=== PATIENT | female | born 1950 | race Caucasian/White ===

== ENCOUNTER → 2018-01-24 | Outpatient (CLI) | payer MEDICARE, OTHER, MEDICAID ==
[~2018-01-24] MED LIST: DULCOLAX10 M1 R; MILK OF MA400 MG/5 M PO; PROAIR HFA8.5 GM INH; SPIRIVA -- 3018 MCG INH; TYLENOL325 M3 PO; VENTOLIN 02.5 MG/3 M INH; VICODIN 500 MG-1 TAB PO; VITAMIN D-32000 UNI1 PO
== END | disposition home or self-care (01) ==
LOC: CT 01-20 09:00
DX: K57.90 Diverticulosis of intestine, part unspecified, without perforation or abscess without bleeding (principal); J44.9 Chronic obstructive pulmonary disease, unspecified

== ENCOUNTER 2019-05-20 12:32 | Inpatient (IN) | payer MEDICARE, OTHER, MEDICAID ==
[~2019-05-20] VITALS: Ht 157.5 cm; Wt 35.0 kg
[2019-05-20 12:34] VITALS: BP 155/61
[2019-05-20 12:56] LABS: BASO % 0.2 % (0.0-1.0); EOS % 0.1 % (1.0-4.0); HEMATOCRIT 43.2 % (37.0-47.0); HEMOGLOBIN 13.9 g/dl (12.0-16.0); LYMPH # 0.8 10*3/uL (1.3-4.4); LYMPH % 6.1 % (27.0-41.0); MEAN CELL VOLUME 88.7 fl (81.0-99.0); MEAN CORPUSCULAR HGB 28.5 pg (27.0-31.0); MEAN CORPUSCULAR HGB CONC 32.2 g/dl (33.0-37.0); MEAN PLATELET VOLUME 12.2 fl (9.6-12.3); MONO # 0.7 10*3/uL (0.1-1.0); MONO % 4.8 % (3.0-9.0); NEUT # 12.1 10*3/uL (2.3-7.9); NEUT % 88.4 % (47.0-73.0); PLATELET COUNT AUTOMATED 132 10*3/uL (130-400); RED BLOOD COUNT 4.87 10*6/uL (4.10-5.10); RED CELL DISTRI WIDTH 13.6 % (0-14.5); WHITE BLOOD COUNT 13.7 10*3/uL (4.8-10.8)
[2019-05-20 13:04] LABS: ACT PARTIAL THROMBO TIME 27.6 SECONDS (20.0-32.1); INTERNATIONAL NORM RATIO 0.9 (2.0-3.5)
[2019-05-20 13:05] LABS: BUN 14 mg/dl (7-24); CHLORIDE 106 mmol/L (98-107); CREATININE 0.61 mg/dL (0.55-1.02); POTASSIUM 3.6 mmol/L (3.5-5.1); SODIUM 142 mmol/L (136-145)
[2019-05-20 15:08] LABS: BILIRUBIN NEGATIVE (NEGATIVE); BLOOD NEGATIVE (NEGATIVE); CLARITY CLOUDY (CLEAR); COLOR YELLOW (YELLOW); GLUCOSE NEGATIVE (NEGATIVE); KETONE NEGATIVE (NEGATIVE); LEUKO ESTERASE NEGATIVE (NEGATIVE); NITRITE POSITIVE (NEGATIVE); PH 8.5 (5.0-9.0); UROBILINOGEN 0.2 E.U./dl (0.2-1.0)
[2019-05-20 15:10] VITALS: BP 144/65
[2019-05-20 15:18] LABS: BACTERIA 2+; EPITHELIAL CELLS 0-2; WBC 0-2 wbc/hpf (0-5)
--- NOTE | 2019-05-20 15:20 | NUR ---
Time: 1519 A 69 year old FEMALE admitted to 5E under services of AYDEN ANNE DO. Pt. arrived via bed from ER. Chief complaint: ACUTE PAIN. HAYDEE IRVIN
--- NOTE | 2019-05-20 15:49 | NUR ---
PT GIVEN MORPHINE SULFATE FOR PAIN AFTER PT YELLING OUT AND GRIMACING WITH MOVEMENT. PT THEN STARTED ITCHING ARM AND ARM WAS RED WITHOUT BLOTCHING IMMEDIATELY. DR BRAUN CALLED AND STATED HE WOULD BE UP TO SEE PATIENT.
[2019-05-20 16:00] VITALS: BP 147/71
[2019-05-20] MEDS ORDERED: ATORVASTATIN CA10 M1 PO (16:34)
[2019-05-20] MEDS ORDERED: NATURE'S BLEND F1 MG PO (16:35)
[2019-05-20] MEDS ORDERED: MILK OF MA400 MG/51 PO (16:36)
[2019-05-20] MEDS ORDERED: OYSTER SHELL C1 EAC3 PO (16:36)
[2019-05-20] MEDS ORDERED: THIAMINE HCL100 MG PO (16:37)
[2019-05-20] MEDS ORDERED: VENT7GM INH (16:38)
--- NOTE | 2019-05-20 16:49 | NUR ---
IV MS EFF. WILL CONT TO MONITOR. CALL LIGHT IN REACH.
--- NOTE | 2019-05-20 16:58 | NUR ---
UNABLE TO CALL DR BRIDGES CONSULT AT THIS TIME DUE TO NOBODY BEING STUDENT COUNSELOR. WILL PASS ALONG TO CALL IN AM.
[2019-05-20 20:00] VITALS: BP 150/80
--- NOTE | 2019-05-20 21:00 | NUR ---
DR. MUNGUIA CONTACTED AT THIS TIME REGARDING MED REC BEING UP TO DATE.
--- NOTE | 2019-05-20 21:55 | NUR ---
PRN NORCO PROVIDED FOR LEFT HIP/LEG PAIN, CALL LIGHT IS WITHIN REACH, WILL MONITOR EFFECT.
--- NOTE | 2019-05-20 22:45 | NUR ---
PRN NORCO APPEARS EFFECTIVE, PATIENT IS SLEEPING WITH EASY AND REGULAR RESPERS ON ROOM AIR. CALL LIGHT IS WITHIN REACH.
[2019-05-21] VITALS: BP 149/64
[2019-05-21 06:13] LABS: BASO % 0.2 % (0.0-1.0); EOS % 0.1 % (1.0-4.0); HEMATOCRIT 43.6 % (37.0-47.0); HEMOGLOBIN 14.2 g/dl (12.0-16.0); LYMPH # 0.8 10*3/uL (1.3-4.4); LYMPH % 7.7 % (27.0-41.0); MEAN CELL VOLUME 87.2 fl (81.0-99.0); MEAN CORPUSCULAR HGB 28.4 pg (27.0-31.0); MEAN CORPUSCULAR HGB CONC 32.6 g/dl (33.0-37.0); MEAN PLATELET VOLUME 12.2 fl (9.6-12.3); MONO # 0.7 10*3/uL (0.1-1.0); NEUT # 9.3 10*3/uL (2.3-7.9); NEUT % 85.4 % (47.0-73.0); PLATELET COUNT AUTOMATED 142 10*3/uL (130-400); RED CELL DISTRI WIDTH 13.6 % (0-14.5); WHITE BLOOD COUNT 10.9 10*3/uL (4.8-10.8)
[2019-05-21 06:23] LABS: BUN 9 mg/dl (7-24); CHLORIDE 106 mmol/L (98-107); CREATININE 0.67 mg/dL (0.55-1.02); PHOSPHOROUS 2.6 mg/dL (2.5-4.9); POTASSIUM 3.3 mmol/L (3.5-5.1); SODIUM 139 mmol/L (136-145)
[2019-05-21 08:00] VITALS: BP 100/62
--- NOTE | 2019-05-21 08:34 | NUR ---
PHYSICAL THERAPY Screen received as well as orders for PT will follow, thank you Freida Alberto PT
--- NOTE | 2019-05-21 08:37 | NUR ---
PHYSICAL THERAPY Pt admitted with L hip fx consulted will follow once medically cleared/Ortho consult completed/orders received. Freida Alberto PT
--- NOTE | 2019-05-21 08:39 | NUR ---
Occupational therapy orders received and chart reviewed. Per chart review, patient admitted with a L hip fracture and has a Dr. Still consult. Will follow up following consult. Thank you. Constance Braun OTR/L
--- NOTE | 2019-05-21 09:01 | NUR ---
SPOKE WITH GRACIE AT [facility] REGARDING CONSULT FOR DR BRIDGES.
--- NOTE | 2019-05-21 09:34 | NUR ---
SPOKE WITH MEKA FROM DR SHANKAR OFFICE. DR BRIDGES PLANS TO DO LEFT HIP REPAIR SURGERY TOMORROW 05/22/2019. SET UP MECHANIC STAMPING MACHINES STATES THAT POWER OF MUD BOSS NEEDS NOTIFIED ABOUT SURGERY TOMORROW AND THAT HOSPITALIST NEEDS NOTIFIED REGARDING ANTIBIOTIC FOR UTI.
--- NOTE | 2019-05-21 09:37 | NUR ---
SPOKE WITH DR THURMAN, PHYSICIAN STATES THAT HE WILL ADD ANTIBIOTIC FOR UTI.
[2019-05-21 12:00] VITALS: BP 130/59
--- NOTE | 2019-05-21 13:30 | NUR ---
PT GIVEN PO KDUR 40 MEQ AT THIS TIME. UNABLE TO SCAN D/T PROBLEMS WITH COMPUTER/INTERNET. WILL MONITOR.
--- NOTE | 2019-05-21 15:09 | NUR ---
PT IS HALF-WAY CARE AT [facility] AND WILL RETURN WHEN MEDICALLY STABLE. WILL CONTINUE TO FOLLOW.
--- NOTE | 2019-05-21 15:39 | NUR ---
Nursing screen received and occupational therapy referral received. Thank you. Melita Barbosa OTR/L
[2019-05-21 16:00] VITALS: BP 140/68
[2019-05-21 20:00] VITALS: BP 131/62
--- NOTE | 2019-05-21 20:11 | NUR ---
PATIENT MEDICATED WITH DILAUDID FOR C/O OF LEFT HIP PAIN. WILL CONTINUE TO MONITOR
--- NOTE | 2019-05-21 21:11 | NUR ---
DILAUDID EFFECTIVE FOR PAIN
--- NOTE | 2019-05-21 23:30 | NUR ---
PATIENT IS RESTING IN BED WITH EASY AND REGULAR RESPERS ON ROOM AIR. ASSESSMENT IS COMPLETE WITH NO S/S OF DISTRESS OR C/O NOTED AT THIS TIME. BED IS LOW, LOCKED, ALARMED, AND CALL LIGHT IS WITHIN REACH. SEE SHIFT ASSESSMENT.
[2019-05-22] VITALS (13 sets, daily range): BP systolic 94–150; BP diastolic 34–68
[2019-05-22 06:56] LABS: BASO % 0.2 % (0.0-1.0); EOS % 0.4 % (1.0-4.0); HEMATOCRIT 43.1 % (37.0-47.0); HEMOGLOBIN 13.9 g/dl (12.0-16.0); LYMPH # 0.7 10*3/uL (1.3-4.4); LYMPH % 7.3 % (27.0-41.0); MEAN CELL VOLUME 88.5 fl (81.0-99.0); MEAN CORPUSCULAR HGB 28.5 pg (27.0-31.0); MEAN CORPUSCULAR HGB CONC 32.3 g/dl (33.0-37.0); MEAN PLATELET VOLUME 12.2 fl (9.6-12.3); MONO # 0.8 10*3/uL (0.1-1.0); MONO % 8.4 % (3.0-9.0); NEUT # 8.3 10*3/uL (2.3-7.9); NEUT % 83.1 % (47.0-73.0); PLATELET COUNT AUTOMATED 139 10*3/uL (130-400); RED BLOOD COUNT 4.87 10*6/uL (4.10-5.10); RED CELL DISTRI WIDTH 13.6 % (0-14.5)
[2019-05-22 07:04] LABS: BUN 10 mg/dl (7-24); CHLORIDE 100 mmol/L (98-107); CREATININE 0.76 mg/dL (0.55-1.02); SODIUM 136 mmol/L (136-145)
[2019-05-22 07:05] LABS: POTASSIUM 4.4 mmol/L (3.5-5.1)
--- NOTE | 2019-05-22 07:52 | NUR ---
Patient is mcc at [facility]. BELT LACER [facility] When medically stable patient can return. -LEO Tejada
--- NOTE | 2019-05-22 11:07 | NUR ---
PT TRANSPORTED VIAS BED TO OR FOR LEFT HEMIARTHROPLASTY.
--- NOTE | 2019-05-22 12:51 | NUR ---
PT HAVING SURGERY TODAY AND WILL RETURN TO [facility] WHEN MEDICALLY STABLE. WILL CONTINUE TO FOLLOW.
--- NOTE | 2019-05-22 17:48 | NUR ---
PT RETURNED FROM OR. REPORT RECIEVED. PT STABLE AT THIS TIME.VOICES NO C/O OF PAIN ABDUCTOR PILLOW IN PLACE.CALL LIGHT IN REACH.
[2019-05-23] VITALS: BP 115/77
--- NOTE | 2019-05-23 00:30 | NUR ---
PATIENT IS RESTING IN BED WITH EASY AND REGULAR RESPERS ON ROOM AIR. ASSESSMENT IS COMPLETE WITH NO C/O NOTED AT THIS TIME. PATIENT HAS S/S OF PAIN WHEN TOUCHING LEFT LEG. PRN MORPHINE GIVEN. PRN TYLENOL GIVEN FOR TEMP OF 100.7. CALL LIGHT IS WITHIN REACH, WILL MONITOR EFFECT. BED IS LOW, LOCKED, ALARMED, AND CALL LIGHT IS WITHIN REACH.
[2019-05-23 06:25] LABS: BASO % 0.2 % (0.0-1.0); EOS # 0.1 10*3/uL (0.0-0.4); EOS % 0.8 % (1.0-4.0); LYMPH # 1.1 10*3/uL (1.3-4.4); LYMPH % 12.8 % (27.0-41.0); MEAN CELL VOLUME 88.2 fl (81.0-99.0); MEAN CORPUSCULAR HGB 27.7 pg (27.0-31.0); MEAN CORPUSCULAR HGB CONC 31.4 g/dl (33.0-37.0); MEAN PLATELET VOLUME 12.5 fl (9.6-12.3); MONO % 11.1 % (3.0-9.0); NEUT # 6.5 10*3/uL (2.3-7.9); NEUT % 74.5 % (47.0-73.0); PLATELET COUNT AUTOMATED 110 10*3/uL (130-400); RED BLOOD COUNT 3.97 10*6/uL (4.10-5.10); RED CELL DISTRI WIDTH 13.3 % (0-14.5); WHITE BLOOD COUNT 8.8 10*3/uL (4.8-10.8)
[2019-05-23 06:35] LABS: BUN 6 mg/dl (7-24); CHLORIDE 104 mmol/L (98-107); CREATININE 0.57 mg/dL (0.55-1.02); POTASSIUM 3.8 mmol/L (3.5-5.1); SODIUM 139 mmol/L (136-145)
--- NOTE | 2019-05-23 07:26 | NUR ---
24 HR chart check completed.
[2019-05-23 08:00] VITALS: BP 145/69
--- NOTE | 2019-05-23 08:50 | NUR ---
Occupational Therapy evaluation completedon 5 with full eval to follow. Precautions include left hip hemiarthroplasty,WBAT LLE,left hip precautions, abductor wedge, fall risk; bed alarm,compression pumps BLEs,patient fearful of movement. Recommend OT per pOC and SNF to enable return to independent ADLS and amb w/ ww at LTC. Thank you. Melita Barbosa OTr/l
--- NOTE | 2019-05-23 09:26 | NUR ---
MEDICATED WITH IV DILAUDID ORDERED PER PT REQUEST FOR C/O PAIN RATED 5/10 TO L HIP S/P WORKING WITH PT. DRESSING D/I. I.S. ENCOURAGED.
--- NOTE | 2019-05-23 09:34 | NUR ---
PHYSICAL THERAPY Geeta completed pt high level of complexity 09665 recomend SNF at discharge PT to work on transfers, kaity w AD, exercise/strengthening, ed on hip precautions. Freida Alberto PT
--- NOTE | 2019-05-23 11:00 | NUR ---
MEDICATION EFFECTIVE FOR PAIN.
[2019-05-23 12:00] VITALS: BP 143/71
--- NOTE | 2019-05-23 13:50 | NUR ---
OT NOTE Pt was seen this P.M. 1:1 for 17 minute OT session. Upon arrival pt was supine in bed. Pt identified by name and on wristband and had complaints of LLE pain however was unable to rate on 0-10 pain scale. Pt was educated on hip precautions however when pt was asked to repeat what her precautions were she was unable to verbalize. Pt transferred supine to sit EOB with maxA X 2 with inital "stiff" posture requiring mod-maxA to correct sitting balance however after relaxation techniques and reassurance pt was able to relax and sit EOB with F sitting balance/CGA. Sit to stand completed from bed level with modA X 2 and use of w/w for UE support. Functional mobility was then completed into the bathroom with Wilmer and use of w/w. Throughout pt maintained good hip precautions and was WBAT. Pt transferred on to standard commode with modA for sitting and maxA for kicking her LLE out when sitting to be sure of not breaking 90 degrees when sitting. Clothing management and toilet hygiene completed with maxA. Sit to stand then completed from commode level with modA followed by functional mobility to the EOB with Wilmer and use of w/w. Pt then transferred back into bed sit to supine with maxA X 2. Pt was left supine in bed with call light in hand, tray table in place, SCD pumps on, abductor pillow in place, and bed alarm activated for safety. Continue with rec D/C plan to SNF. MARY KATE Helms
--- NOTE | 2019-05-23 14:00 | NUR ---
PHYSICAL THERAPY TREATMENT TIME: 1:30 PM - 1:50 PM 20 MINUTES TOTAL Patient presented to therapy in supine with head of bed elevated and bed alarm activated. Patient could not verbalize a pain number scale , but she was definatley in pain in the L hip. Patient gives informed consent for treatment. Patient was identified by name and on wristband. Patient ABDUCTION PILLOW in place between LEs. catheter, and SCD PUMPS on bilateral LEs. Patient transferred supine to sitting at EOB with MAX A X 2 with retropulsion in sitting and voluntary tightening of hip extensors and core leaning back very hard due to increased pain with transfer in the L HIP. Patient is confused and with cognitive deficits that prevent here from being able to understand to relax instead of tightening up with the pain in the hip. Patient sat on EOB with MOD A X 1 at first and then, as she was encouraged to relax, soon was able to sit at EOB CGA X 1. Patient performed sit to stand from EOB with MOD A X 2 and verbal cues for hand placement. Patient ambulated with much encouragement and instructions in hip precautions with MIN A X 1 with verbal cues for advancing walker, not pivoting on L LE and WBAT. Patient is WBAT L LE. Patient ambulated 20' x 1 and then sat in chair with MOD A X 2 with verbal cues for kicking L LE OUT IN FRONT SHE SAT and verbal cues for putting hands back on armrests of chair as she sat. Patient sit > stand out of chair with MOD A X 2. Patient performed ambulation with Wh Walker another 15' x 1 with MIN A X 1 and sat on EOB with MOD A X 2. Patient transferred back to supine in bed with MAX A X 2. Patient moved up to head of bed with sheet with MAX A X 2. Patient was left in supine in bed with head of bed elevated, call light within reach and bed alarm activated. Patient was 1:1 with this EXHAUST AND MUFFLER REPAIRER for 20 minutes total. GAVIN GORDON WAS PRESENT WITNESS TO THIS TREATMENT. ANA CRISTINA NELSON EXHAUST AND MUFFLER REPAIRER
--- NOTE | 2019-05-23 15:10 | NUR ---
PT IS GROUP HOME CARE AT [facility] AND WILL RETURN WHEN MEDICALLY STABLE.
[2019-05-23 16:00] VITALS: BP 148/84
--- NOTE | 2019-05-23 16:00 | NUR ---
Patient resting quietly with no c/o discomfort. Respirations easy and regular. Vital signs stable. No overt distress. RITU JORDAN
--- NOTE | 2019-05-23 19:30 | NUR ---
BOTH HEP LOCKS TO LEFT ARM REMOVED. OCCLUDED AND UNABLE TO FLUSH. NEW HEP LOCK 20 GAUGE STARTED IN RT ARM. PT TOLERATED WELL.
[2019-05-23 20:00] VITALS: BP 126/58
--- NOTE | 2019-05-23 20:08 | NUR ---
TYLENOL ADMINISTERED FOR A TEMP OF 99.9. WILL MONITOR.
[2019-05-24] VITALS: BP 106/58; BP 178/80; BP 99/50
--- NOTE | 2019-05-24 03:01 | NUR ---
24 HOUR CHART CHECK COMPLETE.
[2019-05-24 06:41] LABS: BASO % 0.2 % (0.0-1.0); EOS # 0.2 10*3/uL (0.0-0.4); EOS % 1.8 % (1.0-4.0); HEMATOCRIT 34.5 % (37.0-47.0); HEMOGLOBIN 11.3 g/dl (12.0-16.0); LYMPH # 0.6 10*3/uL (1.3-4.4); MEAN CELL VOLUME 86.5 fl (81.0-99.0); MEAN CORPUSCULAR HGB 28.3 pg (27.0-31.0); MEAN CORPUSCULAR HGB CONC 32.8 g/dl (33.0-37.0); MEAN PLATELET VOLUME 12.3 fl (9.6-12.3); MONO # 0.8 10*3/uL (0.1-1.0); MONO % 9.7 % (3.0-9.0); NEUT % 80.6 % (47.0-73.0); PLATELET COUNT AUTOMATED 125 10*3/uL (130-400); RED BLOOD COUNT 3.99 10*6/uL (4.10-5.10); RED CELL DISTRI WIDTH 13.3 % (0-14.5); WHITE BLOOD COUNT 8.7 10*3/uL (4.8-10.8)
[2019-05-24 08:00] VITALS: BP 132/59
--- NOTE | 2019-05-24 08:19 | NUR ---
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 Patient is okay to return when medically stable. DREDGING INSPECTOR faxed updates to [facility]. -LEO Tejada
--- NOTE | 2019-05-24 10:21 | NUR ---
MEDICATED WITH IV DILAUDID ORDERED PER PT REQUEST FOR C/O PAIN TO LEFT HIP 8/10 WITH MOVEMENT.
--- NOTE | 2019-05-24 10:31 | NUR ---
OT NOTE Pt was seen this A.M. 1:1 for 18 minute OT session. Upon arrival pt was supine in bed. Pt identified by name and on wristband and presented with increased confusion due to being disoriented to place and time. Pt was reeducated and provided visual handout of hip precautions. Pt was then asked to repeat and pt was unable stating "I don't know." Pt transferred supine to sit EOB with maxA x 2. Upon inital rise to the EOB pt was very fearful of falling resulting in retrograde posture requiring maxA to correct, after relaxation and reassurance pt was able to sit with CGA for safety. Sit to stand completed from bed level with modA X 2 and use of w/w followed by functional mobility into the bathroom with Wilmer and use of w/w. There she transferred on/off standard commode with modA X 2 and use of w/w. Pt then stood sink side while washing her hands with CGA. Pt was able to weight shift, cross midline, and reach over all planes throughout task while maintaining F- standing balance. Functional mobility was then completed back to the EOB where she transferred sit to supine with maxA X 2. There was left with call light in hand, tray table in place, abductor pillow in place, SCD pumps on, and bed alarm activated for safety. Continue with rec D/C plan to SNF. MARY KATE Helms
--- NOTE | 2019-05-24 10:43 | NUR ---
PHYSICAL THERAPY TREATMENT TIME: 10:15 AM - 10:33 18 MINUTES TOTAL Patient presented to therapy with head of bed elevated andreport of no pain while lying down. Patient cannot give a numerical pain level. Patient gives informed consent for treatment. Patient was identified by name and on wristband. Patient is on infusing IV line right now. Patient transferred supine to sittiNG AT EOB with MAX A X 2. Patient has increased pain in the L HIP and L LE wit htransfer and stiffness in LE, CORE, AND HIP musculature upon sitting at EOB. Patient sits on EOB with MAX A X 2 at first and then relaxed within a minute and was able to sit EOB with CGA X 1. Patient performed sit to stand from EOB with MOD A X 2 wit hverbal cues for pushing off the bed with , which patient DID NOT understand how to follow. Patient ambulated 15' x 2 with Wh Walker and CGA X 2 WBAT on L LE. Patient sat in low chair at 15' X 1 and was able to sit in chair with MOD A X 2 WITH VERBAL CUES FOR PUTTIGN HANDS BACK ON armrests of chair and kicking L LE out in front of her as she sat. This required MANUAL ASSISTANCE to move L LE OUT IN FRONT OF PATIENT to prevent > 90 fdegrees at the hip. Patient was educated on L THR precautions which she has diffciutly understanding and following. Patient sit to stand out of low chair with MOD A X 2. [facility] and declined ot walk further due to increased pain in the L HIP. Patient began to sit to soon and was very unsafe sitting at EOB. Patient transferred back to supine in bed with MAX A X 2. Patient was left in supine with head of bed elevated, call light within reach and bed alarm activated. Patient was 1:1 with this LIME BURNER for 18 minutes total. HIP ABDUCTION PILLOW IN PALCE AND SCD PUMPS ON BILATERAL LEs. ANA CRISTINA NELSON LIME BURNER
[2019-05-24 12:00] VITALS: BP 134/64
--- NOTE | 2019-05-24 12:00 | NUR ---
MEDICATION EFFECTIVE FOR PAIN.
--- NOTE | 2019-05-24 12:39 | NUR ---
PT IS HALF-WAY CARE AT [facility] AND WILL RETURN WHEN MEDICALLY STABLE.
--- NOTE | 2019-05-24 13:00 | NUR ---
DR BRIDGES IN AND CHANGED L HIP DRESSING WITH ANOTHER RN. POST-OP PHOTOS WERE UNABLE TO BE TAKEN DRESSING WAS ALREADY COMPLETED. PT HAS A 0.5 X 0.5CM BLISTER TO SACRUM PER DR BRIDGES WHO SAW RN IN THE [facility]. SHE STATES IT WAS PRESENT PRIOR TO SURGERY.
--- NOTE | 2019-05-24 14:00 | NUR ---
OT NOTE Pt was seen this P.M. 1:1 for second OT session consisting of 13 minutes. Upon arrival pt was supine in bed. Pt identified by name and and had complaints of L hip pain however was unable to rate on 0-10 pain scale. Pt was again reeducated on hip precautions one at a time and was still unable to repeat any of the precautions. Pt transferred supine to sit EOB with maxA X 2. As in previous sessions pt becomes very guarded due to fear of falling requiring maxA to correct retrograde posture upon inital rise and after relaxation is able to sit EOB with CGA for safety. Sit to stand completed from bed level with modA X 2 and use of w/w for UE support. Functional mobility was then completed around the room with Wilmer and use of w/w. Challenged pt's dynamic standing tolerance needed for increased I in self care tasks and functional transfers, pt was able to tolerate aprox 4 minutes at a time before sitting due to fatigue. Pt transferred back into bed sit to supine with maxA X 2. There she was left with call light in hand, tray table in place, bed alarm activated for safety, abductor pillow in place, and SCD pumps activated. Continue with rec D/C plan to SNF. GAVIN Helms/Almaz
--- NOTE | 2019-05-24 14:22 | NUR ---
PHYSICAL THERAPY TREATMENT TIME: 1:40 PM - 2:00 PM 20 MINUTES TOTAL Patient was supine in bed with head of bed elevated upon this LONG DISTANCE BILLING OPERATOR arriving in patient's room. Patient gives informed consent for treatment. Patient was identified by name and on wristband. Patient performed supine to sitting at EOB transfer with MAX A X 2. Patient performed sitting at EOB, at first with MAX A X 2 and then when patient calmed down was CGA X 2. Patient sit to stand from EOB with MOD X 2. Patient ambulated with Wh Walker and CGA X 1 for 40' x 1 and verbal cues for step-length, upright posture and not pivoting on L LE. Patient transferred back to supine in bed with MAX A X 2. Patient moved up to head of bed with MAX A X 2 with sheet. Patient was left in supine in bed with head of bed elevated, call light within reach, bed alarm elevated. Patient was 1:1 with this LONG DISTANCE BILLING OPERATOR 20 minutes total. ANA CRISTINA NELSON LONG DISTANCE BILLING OPERATOR
[2019-05-24 16:00] VITALS: BP 147/69
[2019-05-24 20:00] VITALS: BP 133/74
[2019-05-25] VITALS: BP 136/59
[2019-05-25 06:46] LABS: BASO % 0.1 % (0.0-1.0); EOS # 0.2 10*3/uL (0.0-0.4); EOS % 2.1 % (1.0-4.0); HEMATOCRIT 32.1 % (37.0-47.0); HEMOGLOBIN 10.4 g/dl (12.0-16.0); LYMPH # 0.8 10*3/uL (1.3-4.4); LYMPH % 10.3 % (27.0-41.0); MEAN CELL VOLUME 86.5 fl (81.0-99.0); MEAN CORPUSCULAR HGB CONC 32.4 g/dl (33.0-37.0); MEAN PLATELET VOLUME 12.4 fl (9.6-12.3); MONO # 0.8 10*3/uL (0.1-1.0); MONO % 10.6 % (3.0-9.0); NEUT # 5.9 10*3/uL (2.3-7.9); NEUT % 76.5 % (47.0-73.0); PLATELET COUNT AUTOMATED 146 10*3/uL (130-400); RED BLOOD COUNT 3.71 10*6/uL (4.10-5.10); RED CELL DISTRI WIDTH 13.4 % (0-14.5); WHITE BLOOD COUNT 7.7 10*3/uL (4.8-10.8)
--- NOTE | 2019-05-25 07:05 | NUR ---
ADRIANA POP [id number] Please refer to the physician's history and physical for past medical history, comorbid conditions, and allergies. Diagnosis: CLOSED LEFT HIP FRACTURE Karlos Score: 16,AT RISK WOUND DESCRIPTIONS: Wound Number: 1 Location of the wound: sacrum Type of wound: Deep tissue pressure injury Size: 0.9cm x 0.6cm x 0.1cm Tunneling: none Undermining: none Sinus Tract: none Presence of Exudate: Serosanguineous Amount: Light Color: Red, dark purple Odor: None Periwound Skin Appearance: Erythema Wound edges: approximated Pain (associated with wound): none at time of assessment How does patient state this happened? pt unsure how this happened Bilateral heels are red, blanchable and mushy at time of assessment. No open areas noted at time of assessment. Surface the patient is resting on: Isoflex SKIN PREVENTION RECOMMENDATION: 1. Pressure redistribution support surface as appropriate 2. Elevate heels 3. Remove boots/TEDS every shift and reapply 4. Head of bed 30 degrees as tolerated 5. Assess nutrition and hydration 6. Manage moisture 7. Avoid the use of containment devices while in bed 8. Use absorptive products on surfaces limit layers of linens on bed 9. Turn and reposition every 1-2 hours in bed and every 1 hour in chair as tolerated 10. Weight shifts every 15 minutes while up in chair 11. Offloading with pillows or device to keep heels elevated off bed 12. Monitor skin at least every shift 13. Inspect under medical devices twice a day WOUND TREATMENT RECOMMENDATIONS: DTI guidelines: Cleanse sacrum with nss and apply sureprep around the wound therahoney to wound bed and cover with optifoam gentle. Heel raiser pro boots to bilateral feet while in bed. Wheelchair cushion when oob.
[2019-05-25 08:00] VITALS: BP 129/60
--- NOTE | 2019-05-25 08:18 | NUR ---
PHYSICAL THERAPY Danny and evalfreda received pt already evaluated Freida Alberto PT
--- NOTE | 2019-05-25 08:30 | NUR ---
PT WAS UP WITH THERAPY, RESTING BACK IN BED. RESP-EASY AND REGULAR. DENIES PAIN. VOICES USING INCENTIVE SPIROMETER. TEDS/SCD'S ON. DRESSING D/I ON LEFT HIP. CALL LIGHT IN REACH. SEE SHIFT ASSESSMENT.
--- NOTE | 2019-05-25 09:00 | NUR ---
OT NOTE Pt was seen this A.M. 1:1 for 15 minute OT session. Upon arrival pt was supine in bed. Pt identified by name and and had no complaints at this time. While supine in bed requested for pt to verbalize her hip precautions and pt was unable. After being given one at a time pt was still unable to repeat precautions. Pt transferred supine to sit EOB with maxA X 2. Upon inital rise pt was able to maintain F+ sitting balance requiring SBA-CGA. Pt then completed sit to stand from bed level with Wilmer X 2 and use of w/w and became aggitated after aprox 20 second stand resulting in "throwing" herself back into bed. Pt was assisted to maintain proper hip precautions and was repositioned with maxA X 2. There she was left with call light in hand, tray table in place, bed alarm activated, abductor pillow in place, and SCD pumps in place. Continue with rec D/C plan to SNF. GAVIN Helms/Almaz
--- NOTE | 2019-05-25 09:08 | NUR ---
Patient is LTC at [facility]. Patient can return when medically stable. VP [employer]ATFORMS [facility] -LEO Tejada
--- NOTE | 2019-05-25 09:14 | NUR ---
PHYSICAL THERAPY TREATMENT TIME: 08:47 AM - 09:00 AM 13 MINUTES TOTAL Patient was supine in bed with head of bed elevated and bed alarm activated and SCD pumps on bilateral LEs. Patient gives informed consent for treatment. Patient was identified by name and on wristband. Patient transferred supine to sitting at EOB with MAX A X 2. Patient performed sat on EOB with MOD A X 2 and then quickley was CGA X 2, as she relaxed and pain level decreased. Patient sit to stand from EOB with MOD A X 2. Patient does not follow most verbal commands. Patient has great diffciulty following hip precautions. Patient sit to stand from EOB with MAX A X 2. Patient started to ambulate and then refused before taking any steps. She insisted on going back to bed and she did't want to ambulate at all. Patient was transferred back to supine in bed with MAX A X 2. Patient was left supine in bed with head of bed elevated, call light within reach and bed alarm activated. Patient was 1:1 with this MONITOR AND STORAGE BIN TENDER for for 13 minutes total. GAVIN GORDON PRESENT WITNESS FOR THIS TREATMENT. ANA CRISTINA NELSON MONITOR AND STORAGE BIN TENDER
--- NOTE | 2019-05-25 11:28 | NUR ---
Dr. Roque notified of wound care recommendations.
[2019-05-25] MEDS ORDERED: Lovenox40 MG/0.4 PO (11:57)
[2019-05-25] MEDS ORDERED: NORCO 5-325 TA1 EACH PO (11:57)
[2019-05-25] MEDS ORDERED: MEDI-FIRST ASP325 MG PO (11:57)
[2019-05-25 12:00] VITALS: BP 142/67
--- NOTE | 2019-05-25 13:36 | NUR ---
CREDIT CHARGE AUTHORIZER spoke with RN Tom about discharge. CREDIT CHARGE AUTHORIZER spoke with [facility] for a 2:30pm orange picker. CREDIT CHARGE AUTHORIZER notified [facility]. CREDIT CHARGE AUTHORIZER will fax discharge orders. CREDIT CHARGE AUTHORIZER attempted to reach son 2x, phone rang and went right to voicemail both times. -LEO Tejada
--- NOTE | 2019-05-25 14:24 | NUR ---
JEFRY GILMORE AT [facility] GAVE REPORT ON PTMiguelangel HOPSON WILL BE HERE AT 230.
--- NOTE | 2019-05-25 14:26 | NUR ---
Discharge instructions reviewed with patient/family. Patient receptive and verbalizes understanding. Follow-up care arranged. Written instructions given to patient/family. HEPLOCK REMOVED 2X2 APPLIED. MABEL CENTENO
--- NOTE | 2019-05-25 14:42 | NUR ---
PT ESCORTED OFF THE FLOOR FRO DISCHARGE VIA [facility]. PAPERS GIVEN TO DAIRY FEED WORKER.
--- NOTE | 2019-05-25 15:18 | NUR ---
OCCUPATIONAL THERAPY CO-SIGN I approve of the Occupational Therapy notes written above. LILIAN RAI OTR/Almaz
--- NOTE | 2019-05-25 15:25 | NUR ---
PHYSICAL THERAPY CO-SIGN I approve of the Physical Therapy notes written above. Freida Alberto PT
--- NOTE | 2019-05-25 15:25 | NUR ---
Nursing screen and occupational therapy referral received. Thank you. Melita Barbosa OTR/l
--- NOTE | 2019-05-28 16:01 | NUR ---
OCCUPATIONAL THERAPY CO-SIGN I approve of the Occupational Therapy notes written above. LILIAN RAI OTR/Almaz
== END 2019-05-25 15:25 | disposition other institution (70) | DRG 470 ==
LOC: ED 12:32 → EDHOLD 13:30 → 5E 13:30
PROVIDERS: Emergency Medicine; Internal Medicine; Orthopaedic Surgery; ADMIT Family Medicine
PROC: 0SRS0JA Replacement of Left Hip Joint, Femoral Surface with Synthetic Substitute, Uncemented, Open Approach (ICD-10-PCS; principal; 2019-05-22)
DX: S72.002A Fracture of unspecified part of neck of left femur, initial encounter for closed fracture (principal); N39.0 Urinary tract infection, site not specified; F32.9 Major depressive disorder, single episode, unspecified; F41.9 Anxiety disorder, unspecified; F01.50 Vascular dementia, unspecified severity, without behavioral disturbance, psychotic disturbance, mood disturbance, and anxiety; K70.30 Alcoholic cirrhosis of liver without ascites; M13.0 Polyarthritis, unspecified; J44.9 Chronic obstructive pulmonary disease, unspecified; M81.0 Age-related osteoporosis without current pathological fracture; F17.210 Nicotine dependence, cigarettes, uncomplicated; W19.XXXA Unspecified fall, initial encounter; E87.6 Hypokalemia; Y93.89 Activity, other specified; Y92.89 Other specified places as the place of occurrence of the external cause; Y99.8 Other external cause status; Z71.6 Tobacco abuse counseling; Z90.49 Acquired absence of other specified parts of digestive tract; Z98.49 Cataract extraction status, unspecified eye; Z79.899 Other long term (current) drug therapy; Z88.5 Allergy status to narcotic agent

== ENCOUNTER → 2019-07-16 | Outpatient (CLI) | payer MEDICARE, OTHER, MEDICAID ==
[~2019-07-16] MED LIST changes: +ATORVASTATIN CA10 M1 PO; +Lovenox40 MG/0.4 PO; +MEDI-FIRST ASP325 MG PO; +MILK OF MA400 MG/51 PO; +NATURE'S BLEND F1 MG PO; +NORCO 5-325 TA1 EACH PO; +OYSTER SHELL C1 EAC3 PO; +THIAMINE HCL100 MG PO; +VENT7GM INH
== END | disposition home or self-care (01) ==
LOC: ORTHO 01:09
DX: S72.002D Fracture of unspecified part of neck of left femur, subsequent encounter for closed fracture with routine healing (principal); X58.XXXD Exposure to other specified factors, subsequent encounter; Z96.642 Presence of left artificial hip joint

== ENCOUNTER 2019-12-28 21:35 | Inpatient (IN) | payer MEDICARE, OTHER, MEDICAID ==
[~2019-12-28] VITALS: Ht 157.4 cm; Wt 34.0 kg
--- NOTE | 2019-12-28 21:20 | NUR ---
ADRIANA POP a 69 year old F admitted via wheel chair from the ADMITTING as a emergency 72 hr. hold admission. Arrived on unit at 2119. ALLERGIES: NKA. Vital signs are: -- . The client signed the following forms with stated understanding: Authorization For The Release of Medical Information, Clothing List, Consent to Voluntary Admission and Hospitalization, Consent and Release Forms/Receipt of Rights, Acknowledgement of Advance Directive Information, Behavioral Health Consent Form, and Informed Consent of Medications. Admitted under the services of Dr. JILLIAN LATIFJORGE. A search was conducted and hazardous articles were removed. Client was oriented to the unit. ARCELIA JAY
[~2019-12-28 21:35] MED LIST changes: -ASPIRIN CHEWABL81 MG PO; -CELEXA20 MG PO
[2019-12-28] MEDS ORDERED: CELEXA20 MG PO (22:08)
[2019-12-28] MEDS ORDERED: ASPIRIN CHEWABL81 MG PO (22:09)
--- NOTE | 2019-12-28 22:49 | NUR ---
DR. ELDER NOTIFIED OF NEW ADMISSION, PATIENT WILL BE UNDER THE CARE OF DR. GONZALEZ.
[2019-12-28 22:52] VITALS: BP 143/77
[2019-12-29 07:31] LABS: ALBUMIN 3.1 gm/dl (3.1-4.5); BUN 10 mg/dl (7-24); CHLORIDE 108 mmol/L (98-107); CREATININE 0.54 mg/dL (0.55-1.02); HDL CHOLESTEROL 50 mg/dl (40-60); POTASSIUM 4.5 mmol/L (3.5-5.1); SODIUM 141 mmol/L (136-145); TRIGLYCERIDES 69 mg/dl (<150); VLDL CHOLESTEROL 14 mg/dL (6-40)
[2019-12-29 07:41] LABS: ALKALINE PHOSPHATASE 69 U/L (45-117); CHOLESTEROL 106 mg/dL (<200); LDL CHOLESTEROL 42 mg/dL (9-159); SGOT/AST 17 IU/L (3-35); SGPT/ALT 16 U/L (12-78); TOTAL PROTEIN 6.2 gm/dL (6.4-8.2)
[2019-12-29 07:47] VITALS: BP 126/51
[2019-12-29 07:57] LABS: VITAMIN D, 25-HYDROXY 48.7 ng/mL (30-100)
--- NOTE | 2019-12-29 13:45 | NUR ---
PSYCHOSOCIAL HX COMPLETED THIS DATE.
--- NOTE | 2019-12-29 16:28 | NUR ---
P- Pleasantly confused. I- Orientation, mood and behaviors assessed. Assessed pt for SI/HI, intent or plan. Assessed pt for s/s hallucinations, paranoia and/or delusions. Medications administered as per physician's orders. Assistance with ADL care provided as needed. Encouraged pt to attend and participate in rivera milieu groups and activities. R- Pt is alert and oriented to person, approximate place. Pt is able to state she is the in the hospital but unable to state which hospital. Not oriented to date/time or situation. Pt is pleasantly confused. Unable to recall events leading up to hospital admission. Mood appears depressed with flat affect. Speech is soft, coherent, able to answer questions and make needs known. Pt denies SI/HI, intent or plan. Pt denies hallucinations, no response to internal stimuli noted. No paranoia or delusions noted. Pt asks frequently to go outside to smoke, education provided re: no smoking policy at [facility]. Offered to call physician for order for nicotine patch, pt states "No. I don't want no patch". Advised pt if she changes her mind regarding patch to let us know. Pt is medication compliant without difficulty. No distress noted. No aggressive behaviors displayed. Compliant with hands on care without difficulty. P- Plan to continue current treatment, continue to monitor mood and behaviors. Provide appropriate reorientation and redirection as needed. Continue to encourage medication compliance as well as group attendance and participation.
[2019-12-29 19:08] VITALS: BP 116/51
--- NOTE | 2019-12-29 23:17 | NUR ---
P-CONFUSION, MEMORY DEFICITS I-PROVIDED REDIRECTION WITH 1:1 THERAPEUTIC COMMUNICATION AND INTERVENTIONS. PRESENTED REALITY NEEDED. ENCOURAGED AND EDUCATED PATIENT ABOUT MEDICATION AND COMPLIANCE R-PATIENT MEDICATION COMPLIANT AT HS. PATIENT REFUSED SNACK BUT PROVIDED FLUIDS AT HS. PATIENT RECEIVED BREATHING TREATMENT AT HS. PATIENT USING SHORT SIMPLE RESPONSES WHEN COMMUNICATING WITH NURSING STAFF. PATIENT WITH NO HALLUCINATIONS OR DELUSIONS. PATIENT WITH NO SUICIDAL OR HOMICIDAL IDEATIONS. P-CONTINUE TO ENCOURAGE MEDICATION COMPLIANCE, CONTINUE TO PRESENT REALITY, ENCOURAGE GROUP THERAPY WHILE AWAKE
--- NOTE | 2019-12-30 06:46 | NUR ---
PATIENT SLEPT 8-9 HOURS OF UNINTERRUPTED SLEEP THROUGHOUT SHIFT. Q 15 MINUTE CHECKS MAINTAINED. 24 HR chart check completed.
--- NOTE | 2019-12-30 07:20 | NUR ---
PT. TOOK AEROSOL TX OFF AND DOES NOT WANT TO TAKE AT THIS TIME. STAFF NOTIFIED. LUNGS CLEAR, SAT 98 RA, HEART RATE 55.
[2019-12-30 07:24] VITALS: BP 124/60
--- NOTE | 2019-12-30 18:14 | NUR ---
PT ALERT TO PERSON WITH CONFUSION AND MEMORY GAPS NOTED. WITHDRAWN TO SELF. PT DENIED SADNESS AND DEPRESSION. PT CONTINUES TO ASK ABOUT SMOKING. STABLE MOOD. NO HALLUCINATIONS OR DELUSIONS. NO SI/HI. BEHAVIORS MONITORED WITH Q15 MINUTE SAFETY CHECKS. WILL CONTINUE TO MONITOR BEHAVIORS AND PROVIDE 1:1 FOR THERAPEUTIC COMMUNICATION. CONTINUE TO REORIENT PT NEEDED. SEE [facility] FLOW SHEET FOR SPECIFIC MONITORING. MEDICATION COMPLIANT WITHOUT DIFFICULTY.
[2019-12-30 20:00] VITALS: BP 118/50
--- NOTE | 2019-12-30 23:32 | NUR ---
P-CONFUSION I-PROVIDED REDIRECTION WITH 1:1 THERAPEUTIC COMMUNICATION AND INTERVENTIONS. PRESENTED REALITY NEEDED. ENCOURAGED AND EDUCATED PATIENT ABOUT MEDICATION AND COMPLIANCE R-PATIENT MEDICATION COMPLIANT AT HS. PATIENT PROVIDED NOURISHMENT AND FLUIDS AT HS. PATIENT INTERACTING WITH PEERS AND DINING AREAS. PATIENT USING SHORT SIMPLE RESPONSES WHEN COMMUNICATING WITH NURSING STAFF AND PEERS. PATIENT AMBULATING IN HALLWAY WITH ASSIST X 2. PATIENT WITH NO HALLUCINATIONS OR DELUSIONS. PATIENT WITH NO SUICIDAL OR HOMICIDAL IDEATIONS. P-CONTINUE TO ENCOURAGE MEDICATION COMPLIANCE, CONTINUE TO PRESENT REALITY, ENCOURAGE GROUP THERAPY WHILE AWAKE
--- NOTE | 2019-12-31 06:19 | NUR ---
PATIENT SLEPT 5 HOURS OF INTERRUPTED SLEEP THROUGHOUT SHIFT. Q 15 MINUTE CHECKS MAINTAINED. 24 HR chart check completed.
[2019-12-31 07:26] VITALS: BP 117/64
--- NOTE | 2019-12-31 08:14 | NUR ---
PHYSICAL THERAPY Screen received, pt admitted from [facility] for an acute episode of Major depressive disorder and intermitent explosive disorder. Please consult PT if pts functional status declines from baseline. Thank you. Duy Bravo SPT Freida Alberto PT
--- NOTE | 2019-12-31 08:19 | NUR ---
Nursing screen received and chart reviewed. Patient admitted for [facility] to the [facility] intermittent explosive disorder. If patient has a decline in ADLs, transfers, or functional mobility, please send OT orders. Thank you. Constance Braun OTR/L
--- NOTE | 2019-12-31 09:00 | NUR ---
Treatment Plan meeting was held this a.m. with Dr. Beauchamp via telephone, SORTER LAUNDRY ARTICLES Alberta RN, AT, CAR MOVER-S and Law Librarian in attendance. Plan for discharge at the end of the week. Pt. came to [facility] from [facility]. Will reach out to facility to discuss discharge Planning.
--- NOTE | 2019-12-31 09:15 | NUR ---
Spoke with Lili at [facility]. 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 Clinical Updates faxed to facility.
--- NOTE | 2019-12-31 09:36 | NUR ---
The patient has no complaints and is resting comfortably. JENNA LICEA
--- NOTE | 2019-12-31 11:45 | NUR ---
AM GROUP PT ATTENDED MORNING GROUP THERAPY BUT CHOSE NOT TO PARTICIPATE. PT IS OCCUPIED WITH HAVING A "SMOKE BREAK". PT WAS QUIET AND NOTED TO BE WATCHING THE CLOCK. PT EXHIBITED NO ADVERSE BEHAVIORS WHILE IN GROUP.
--- NOTE | 2019-12-31 15:38 | NUR ---
PM GROUP PT ATTENDED AFTERNOON GROUP THERAPY AND PARTICIPATED BY LOOKING AT A MAGAZINE AND DOING WORDSEARCH PUZZLES. PT WAS QUIET AND ON TASK. PT ONLY ASKED ONCE FOR A "SMOKE BREAK" PT EXHIBITED NO ADVERSE BEHAVIORS WHILE IN GROUP.
[2019-12-31 20:00] VITALS: BP 157/68
--- NOTE | 2019-12-31 22:44 | NUR ---
Patient alert and oriented to person,approximate to place with confusion noted. Mood calm,cooperative and pleasant. Patient interacting with staff and other patients during snack in diningroom. Patient denies SI/HI,hallucinations or delusions. No overt s/s of any responding to internal stimuli noted at this time. Patient compliant with HS medications without any difficulty. Provided 1:1 for emotional support. Redirected/reoriented when needed. Plan to continue to encourage medication compliance. Also will plan to provide emotional support and redirect/reorient when needed/appropriate. Will continue to monitor moods/behaviors. Q 15 minute safety checks continued and maintained. See [facility] flowsheet for further documentation.
--- NOTE | 2020-01-01 06:33 | NUR ---
Patient slept approx. 5.5 hours throughout shift. Q 15 minute safety checks continued and maintained.
[2020-01-01 07:45] VITALS: BP 117/63
--- NOTE | 2020-01-01 09:00 | NUR ---
Treatment Plan meeting was held this a.m. with Dr. Beauchamp via telephone, LITHOGRAPHIC STRIPPER Alberta, RN, AT, BUSINESS INTELLIGENCE ADMINISTRATOR-S and Programs Director. Plan for discharge at the end of the week or Early Next Week. 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
--- NOTE | 2020-01-01 10:56 | NUR ---
PATIENT SPIT OUT MORNING MEDS . WILL CONTINUE TO MONITOR,
--- NOTE | 2020-01-01 11:38 | NUR ---
AM GROUP PT ATTENDED MORNING GROUP THERAPY AND PARTICIPATED BY WORKING A WORDSEARCH. PT WAS QUIET AND ON TASK. PT EXHIBITED NO ADVERSE BEHAVIORS WHILE IN GROUP.
--- NOTE | 2020-01-01 15:35 | NUR ---
PM GROUP PT ATTENDED AFTERNOON GROUP THERAPY AND PARTICIPATED BY WATCHING A MOVIE AND DOING WORDSEARCH PUZZLES. PT WAS QUIET AND ON TASK. PT EXHIBITED NO ADVERSE BEHAVIORS WHILE IN GROUP.
[2020-01-01 19:41] VITALS: BP 113/63
--- NOTE | 2020-01-01 22:44 | NUR ---
P-CONFUSION I-ASSESS ORIENTATION, MOOD, AND BEHAVIOR. PRESENT REALITY AND REORIENT NEEDED. PROVIDE 1:1 WITH THERAPEUTIC INTERVENTIONS. ENCOURAGE MEDICATION COMPLIANCE AND EDUCATE. MONITOR SLEEP. R-PATIENT ALERT TO PERSON, APPROX PLACE AND TIME, PLEASANTLY CONFUSED. PT WITH ST/LT MEMORY DEFICITS AND REQUIRES FREQUENT REORIENTATION THROUGHOUT SHIFT. PT OTHERWISE CALM, COOPERATIVE, AND INTERACTIVE. PT SAT IN DINING ROOM TO WATCH A MOVIE WITH PEERS AND WORK ON CROSSWORD PUZZLES. PT MEDICATION COMPLIANT WITH OUT DIFFICULTY, UNABLE TO EDUCATE DUE TO COGNITION. PT DENIES SI/HI, HALLUCINATIONS OR PAIN. PT AMBULATORY WITH A STEADY GAIT WHILE USING A WALKER, ASSIST X1, INCONTINENT OF BOWEL AND BLADDER. NO AGITATION OR AGGRESSION NOTED. PATIENT CURRENTLY LAYING DOWN WITH EYES CLOSED, RESPIRATIONS EASY AND REGULAR, NO SIGNS OR SYMPTOMS OF DISTRESS NOTED. P-CONTINUE TO MONITOR MOOD AND BEHAVIORS. MAINTAIN Q 15 MIN CHECKS AND PRN FOR SAFETY.
--- NOTE | 2020-01-02 00:18 | NUR ---
PATIENT RECEIVED PRN ROZEREM 8MG PO ORDERED BY PHYSICIAN FOR RESTLESSNESS AT HS AT THIS TIME. PT SPIT OUT MEDICATION, UNABLE TO EDUCATE DUE TO COGNITION. MEDICATION WASTED.
--- NOTE | 2020-01-02 05:37 | NUR ---
PATIENT OBSERVED ON Q 15 MIN CHECKS TO HAVE SLEPT APPROX 2 HOUR INTERRUPTED THIS SHIFT. PATIENT HAD MULTIPLE AWAKENINGS NOTED DUE TO BEING PREOCCUPIED WITH THE BATHROOM DESPITE ALL NEEDS BEING MET, FREQUENT REORIENTATION REQUIRED. NO DISTRESS NOTED.
[2020-01-02 08:00] VITALS: BP 107/53
[2020-01-02 08:56] VITALS: BP 134/60
--- NOTE | 2020-01-02 09:00 | NUR ---
Treatment Plan meeting was held this a.m. with Dr. Beauchamp via telephone, RN, AT, SHERLYN-S and Roofing Sales Representative in attendance. Plan for discharge at the end of the week, Early next week. 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
--- NOTE | 2020-01-02 11:35 | NUR ---
AM GROUP PT ATTENDED MORNING GROUP THERAPY AND PARTICIPATED BY DOING SEVERAL WORDSEARCH PUZZLES. PT IS QUIET, ALMOST MUTE, AND RESPONDS WITH A HEAD SHAKE OR A SMILE. PT EXHIBITED NO ADVERSE BEHAVIORS WHILE IN GROUP.
--- NOTE | 2020-01-02 15:36 | NUR ---
PM GROUP/LEISURE INTERESTS PT ATTENDED AFTERNOON GROUP THERAPY AND PARTICIPATED BY DOING SEVERAL WORDSEARCH PUZZLES. PT WAS FOCUSED AND QUIET. PT EXHIBITED NO ADVERSE BEHAVIORS WHILE IN GROUP BUT IS STILL FOCUSED ON THE TIME AND TAKING A "SMOKE BREAK"
--- NOTE | 2020-01-02 15:40 | NUR ---
GERTRUDE CAMOUFLAGE SPECIALIST ON UNIT TO SEE PT AT THIS TIME, DISCUSSED NICOTROL INHALER OK PER IF ORDERED BY MEDICAL TEAM TO BE USED EVERY 3 HOURS BETWEEN 7A-7P IN ACCORDANCE WITH SMOKE BREAKS AT PT'S NURSING FACILITY.
--- NOTE | 2020-01-02 17:33 | NUR ---
PATIENT IS ALERT TO PERSON AND AWARE OF BEING IN THE HOSPITAL. LONG/SHORT TERM MEMORY DEFICITS. MOOD IS IRRITABLE AND RESTLESS AT TIMES. ABLE TO FOLLOW SIMPLE DIRECTION. DENIES HALLUCINATIONS, DELUSIONS, HI/SI OR PAIN. NO RESPONSE TO INTERNAL STIMULI OBSERVED. SPIT OUT MEDICATIONS THIS MORNING WITH MUCH ENCOURAGEMENT TO TAKE MEDICAITON WIHT MULITPLE ATTEMPTS. NO AGGRESSION OBSERVED. 1-2 PERSON ASSIST WITH ACTIVITIES OF DAILY LIVING, CONTINENT OF BOWEL AND BLADDER. SET UP FOR MEALS, INTAKES VARIES. AMBULATES, UNSTEADY BALANCE WITH STAFF ASSISTANCE. CONTINUE TO MONITOR FOR AGGRESSION, HALLUCINATIONS, MEDICATION COMPLAINCE. PROVIDE ONE ON ONE FOR EMOTIONAL SUPPORT, REDIRECTION/ORIENTATION NEEDED.
[2020-01-02 20:00] VITALS: BP 108/60
--- NOTE | 2020-01-02 23:35 | NUR ---
P-CONFUSION I-ASSESS ORIENTATION, MOOD, AND BEHAVIOR. PRESENT REALITY AND REORIENT NEEDED. PROVIDE 1:1 WITH THERAPEUTIC INTERVENTIONS. ENCOURAGE MEDICATION COMPLIANCE AND EDUCATE. MONITOR SLEEP. R-PATIENT ALERT TO PERSON, APPROX PLACE AND TIME, PLEASANTLY CONFUSED. PT WITH ST/LT MEMORY DEFICITS AND REQUIRES FREQUENT REORIENTATION THROUGHOUT SHIFT. PT OTHERWISE CALM AND INTERACTIVE. PT SAT IN DINING ROOM TO WATCH A MOVIE WITH PEERS AND WORK ON CROSSWORD PUZZLES. PT MEDICATION COMPLIANT WITH OUT DIFFICULTY, UNABLE TO EDUCATE DUE TO COGNITION. PT DENIES SI/HI, HALLUCINATIONS OR PAIN. PT AMBULATORY WITH A WHEELED WALKER AND X1 ASSIST, GAIT OCCASIONALLY UNSTEADY. REQUIRES FREQUENT REMINDERS TO ASK FOR ASSISTANCE BEFORE GETTING UP, FALL PRECAUTIONS CONTINUED. PT ALSO REQUIRES X1 ASSIST WITH ADL'S, INCONTINENT OF BOWEL AND BLADDER. NO AGITATION OR AGGRESSION NOTED. PATIENT CURRENTLY LAYING DOWN WITH EYES CLOSED, RESPIRATIONS EASY AND REGULAR, NO SIGNS OR SYMPTOMS OF DISTRESS NOTED. P-CONTINUE TO MONITOR MOOD AND BEHAVIORS. MAINTAIN Q 15 MIN CHECKS AND PRN FOR SAFETY.
--- NOTE | 2020-01-03 05:50 | NUR ---
Patient slept approx. 7.5 hours throughout shift. Q 15 minute safety checks continued and maintained.
[2020-01-03 08:51] VITALS: BP 118/70
[2020-01-03 09:13] VITALS: BP 108/58
--- NOTE | 2020-01-03 11:20 | NUR ---
Treatment Plan meeting was held this a.m. with Dr. Beauchamp, RN, AT, BUSINESS REPORTER-S and Velvet Steamer. Plan for discharge Tuesday. Pt. will return to [facility].
--- NOTE | 2020-01-03 11:29 | NUR ---
DR. THURMAN ON UNIT TO ASSESS PATIENT.
--- NOTE | 2020-01-03 11:42 | NUR ---
AM GROUP PT WAS PRESENT FOR MORNING GROUP THERAPY BUT WAS UNABLE TO PARTICIPATE SHE WAS FOCUSED ON ONE O'CLOCK AND HAVING A SMOKE BREAK. PT ASKED OVER AND OVER IF IT WAS ONE O'CLOCK TO THE POINT WHERE SHE BEGAN IRRITATING PEERS. PT WAS REMOVED AND I ATTEMPTED TO WALK HER UP AND DOWN THE [place] A DISTRACTION BUT WAS UNSUCCESSFUL. PT WAS RETURNED TO THE DAYROOM AND LEFT IN THE CARE OF A [facility] GROUP WAS OVER.
--- NOTE | 2020-01-03 14:21 | NUR ---
PATIENT IS ALERT TO PERSON AND PLACE WITH CONFUSION. LONG/SHORT TERM MEMORY DEFICITS. MOOD IS STABLE. DENIES ANY HALLUCINATIONS, DELUSIONS, HI/SI OR PAIN. MEDICATION COMPLAINT. Q 15 MINUTE SAFETY CHECKS MAINTAINED. 1-2 PERSON ASSIST WITH ACTIVITIES OF DAILY LIVING, INCONTINENT OF BLADDER, CONTINENT OF BOWEL. SET UP FOR MEALS, INTAKES VARIES, ENCOURAGING FLUID INTAKES. VERY UNSTEADY ON FEET. UP IN JOHNNIE CHAIR FOR COMFORT. NO AGGRESSION OBSERVED. PARTICIPATED IN MORNING GROUP, INTERACTIVE WITH STAFF. CONTINUE TO MONITOR FOR AGGRESSION. PROVIDE ONE ON ONE FOR EMOTIONAL SUPPORT, REDIRECTION/ORIENTATION NEEDED.
--- NOTE | 2020-01-03 14:48 | NUR ---
Pt pleasant during interaction today. Pt continues to want to smoke and continues to ask the time that correlates with smoke breaks that pt is used to at the where she resides. Pt interacts minimally beyond her requests for smoke breaks or coffee.
--- NOTE | 2020-01-03 18:53 | NUR ---
MANUAL BP 90/44 WITH COMPLAINTS OF BEING DIZZY. OTHRO LYING 112/57, 74; SITTING 113/49, 76 AND STANDING 111/63, 79. DR BLUNT NOTIFIED. SEE NEW ORDERS.
[2020-01-03 19:12] LABS: BILIRUBIN NEGATIVE (NEGATIVE); BLOOD NEGATIVE (NEGATIVE); CLARITY CLEAR (CLEAR); COLOR YELLOW (YELLOW); GLUCOSE NEGATIVE (NEGATIVE); KETONE NEGATIVE (NEGATIVE); LEUKO ESTERASE NEGATIVE (NEGATIVE); NITRITE NEGATIVE (NEGATIVE); UROBILINOGEN 0.2 E.U./dl (0.2-1.0)
[2020-01-03 19:19] LABS: BACTERIA TRACE; EPITHELIAL CELLS 0-2; RBC 0-2 rbc/hpf (0-2); WBC 0-2 wbc/hpf (0-5)
--- NOTE | 2020-01-03 19:56 | NUR ---
DR ROCHE NOTIFIED OF PTS REFUSAL OF IV FLUIDS. NOTIFIED OF ORTHOSTATIC BPS LYING 112/57 P-74, SITTING 113/49 P-76, STANDING 111/63 P-79. ALSO NOTIFIED OF BNP OF 551. NO FURTHER ORDERS RECEIVED.
[2020-01-03 20:00] VITALS: BP 111/63
--- NOTE | 2020-01-03 22:53 | NUR ---
PT HAS REMAINED IN BED & WENT TO BATHROOM WITH ASSISTANCE OF A WALKER VOIDING SEVERAL TIMES. HAS ALSO BEEN INCONTINENT IN HER DIAPER. SHE IS ALERT TO PERSON WITH CONFUSION & BOTH LONG & SHORT TERM MEMORY DEFICITS. DENIES ANY PHYSICAL DISCOMFORT. HAS HAD FREQUENT REMINDERS TO TAKE FLUIDS & HAS DRANK HER SHAKE, RANDY WESLEY & SOME WATER. ATE CHOCOLATE ICE CREAM. NO AGITATION OR AGGRESSION. CO-OPERATIVE WITH STAFF ASSISTANCE WHEN NEEDED. COMPLIANT WITH PROMPTS.
--- NOTE | 2020-01-03 23:28 | NUR ---
24 HR chart check completed.
--- NOTE | 2020-01-04 05:56 | NUR ---
PT HAS SLEPT PAST 9820
[2020-01-04 07:48] VITALS: BP 115/50
--- NOTE | 2020-01-04 08:16 | NUR ---
DR. KWONG NOTIFIED OF PATIENT BEING DISCHARGED TODAY.
--- NOTE | 2020-01-04 09:14 | NUR ---
Treatment Plan meeting was held this a.m. with Dr. Beauchamp via telephone, DAVID Pinzon RN, INFECTION CONTROL COORDINATOR-S and Control Clerk in attendance. Plan for discharge today with return to [facility]. Pt. is [facility] Care Resident and Primary Care and Psychiatric Follow up is provided at Facility.
--- NOTE | 2020-01-04 09:52 | NUR ---
Discharge Paperwork Faxed to [facility] Attn: Lili [phone].
--- NOTE | 2020-01-04 10:50 | NUR ---
AMBULANCE SERVICE PRESENT FOR PATIENT TO BE DISCHARGED. PATIENT ASSISTED TO [facility]. ALL BELONGING GATHERED AND DISCHARGE INSTRUCTIONS SENT WITH PATIENT OFF UNIT WITH EMT AND SECURITY.
--- NOTE | 2020-01-04 11:48 | NUR ---
Patient discharged today returning to [facility] where pt is a fpc care resident. Follow-up will be with Dr Patel, visiting psychiatrist. While at [facility], pt's behaviors improved. She was pleasant with staff but minimally interacted with her peers. Pt participated in programming as she was able to do so.
== END 2020-01-04 10:50 | DRG 883 ==
LOC: 3N 21:35
PROVIDERS: Hospitalist; ADMIT Psychiatry & Neurology Psychiatry; ATTEND Psychiatry & Neurology Psychiatry
DX: F63.81 Intermittent explosive disorder (principal); E41 Nutritional marasmus; E44.0 Moderate protein-calorie malnutrition; F33.2 Major depressive disorder, recurrent severe without psychotic features; F01.51 Vascular dementia, unspecified severity, with behavioral disturbance; Z68.1 Body mass index [BMI] 19.9 or less, adult; J44.9 Chronic obstructive pulmonary disease, unspecified; F41.9 Anxiety disorder, unspecified; M81.0 Age-related osteoporosis without current pathological fracture; K70.30 Alcoholic cirrhosis of liver without ascites; M13.0 Polyarthritis, unspecified; I10 Essential (primary) hypertension; F17.210 Nicotine dependence, cigarettes, uncomplicated; D64.9 Anemia, unspecified; Z88.5 Allergy status to narcotic agent; Z98.42 Cataract extraction status, left eye; Z90.49 Acquired absence of other specified parts of digestive tract; Z71.6 Tobacco abuse counseling; Z98.41 Cataract extraction status, right eye

== ENCOUNTER → 2019-12-28 | Emergency (ER) | payer MEDICARE, OTHER, MEDICAID ==
[~2019-12-28] VITALS: Ht 160 cm; Wt 54.4 kg
[~2019-12-28] MED LIST changes: +ASPIRIN CHEWABL81 MG PO; +CELEXA20 MG PO
[2019-12-28 18:36] LABS: BILIRUBIN NEGATIVE (NEGATIVE); BLOOD NEGATIVE (NEGATIVE); CLARITY CLEAR (CLEAR); COLOR YELLOW (YELLOW); GLUCOSE NEGATIVE (NEGATIVE); KETONE NEGATIVE (NEGATIVE); LEUKO ESTERASE 1+ (NEGATIVE); NITRITE NEGATIVE (NEGATIVE); PH 6.5 (5.0-9.0); SPECIFIC GRAVITY 1.005 (1.005-1.030); UROBILINOGEN 0.2 E.U./dl (0.2-1.0)
[2019-12-28 18:42] LABS: BASO % 0.3 % (0.0-1.0); EOS # 0.1 10*3/uL (0.0-0.4); EOS % 0.7 % (1.0-4.0); HEMATOCRIT 40.4 % (37.0-47.0); LYMPH # 1.6 10*3/uL (1.3-4.4); LYMPH % 17.7 % (27.0-41.0); MEAN CELL VOLUME 88.8 fl (81.0-99.0); MEAN CORPUSCULAR HGB 28.8 pg (27.0-31.0); MEAN CORPUSCULAR HGB CONC 32.4 g/dl (33.0-37.0); MEAN PLATELET VOLUME 11.6 fl (9.6-12.3); MONO # 0.6 10*3/uL (0.1-1.0); MONO % 6.5 % (3.0-9.0); NEUT # 6.6 10*3/uL (2.3-7.9); NEUT % 74.5 % (47.0-73.0); PLATELET COUNT AUTOMATED 205 10*3/uL (130-400); RED BLOOD COUNT 4.55 10*6/uL (4.10-5.10); RED CELL DISTRI WIDTH 13.4 % (0-14.5); WHITE BLOOD COUNT 8.9 10*3/uL (4.8-10.8)
[2019-12-28 18:44] LABS: BACTERIA TRACE; WBC 16-20 wbc/hpf (0-5)
[2019-12-28 18:53] LABS: ACT PARTIAL THROMBO TIME 28.3 SECONDS (20.0-32.1)
[2019-12-28 18:57] LABS: ALBUMIN 3.2 gm/dl (3.1-4.5); ALKALINE PHOSPHATASE 77 U/L (45-117); BUN 14 mg/dl (7-24); CHLORIDE 106 mmol/L (98-107); CREATININE 0.65 mg/dL (0.55-1.02); LIPASE 173 U/L (73-393); POTASSIUM 3.7 mmol/L (3.5-5.1); SGOT/AST 17 IU/L (3-35); SGPT/ALT 18 U/L (12-78); SODIUM 141 mmol/L (136-145); TOTAL PROTEIN 6.6 gm/dL (6.4-8.2)
[2019-12-28 19:02] LABS: ACETAMINOPHEN (TYLENOL) < 5.0 ug/ml (10-30); ETHYL ALCOHOL < 3.0 mg/dl (<3); TROPONIN I < 0.015 ng/ml (<0.045)
[2019-12-28 19:19] LABS: URINE AMPHETAMINES < 1000 (1000ng/ml); URINE BARBITURATES < 200 (200ng/ml); URINE BENZODIAZEPINES < 200 (200ng/ml); URINE CANNABINOIDS (THC) < 50 (50ng/ml); URINE COCAINE < 300 (300ng/ml); URINE METHADONE < 300 (300ng/ml); URINE OPIATES < 300 (300ng/ml)
[2019-12-28 19:20] LABS: URINE PHENCYCLIDINE < 25 (25ng/ml)
== END ==
LOC: ED 17:47
PROVIDERS: Emergency Medicine; Nurse Practitioner Family
DX: Z03.818 Encounter for observation for suspected exposure to other biological agents ruled out (principal); F32.9 Major depressive disorder, single episode, unspecified; R79.1 Abnormal coagulation profile; F17.210 Nicotine dependence, cigarettes, uncomplicated; Z88.6 Allergy status to analgesic agent; Z79.899 Other long term (current) drug therapy

== ENCOUNTER 2023-06-23 19:14 | Inpatient (IN) | payer MEDICARE, OTHER, MEDICAID ==
[~2023-06-23] VITALS: Ht 152.4 cm; Wt 34.9 kg
[~2023-06-23 19:14] MED LIST changes: +ASPIRIN CHEWABL81 MG PO; +CELEXA20 MG PO
[2023-06-23 19:17] VITALS: BP 114/69
[2023-06-23 19:45] LABS: BASO % 0.3 % (0.0-1.0); EOS % 0.5 % (1.0-4.0); HEMATOCRIT 43.7 % (37.0-47.0); LYMPH # 1.7 10*3/uL (1.3-4.4); MEAN CORPUSCULAR HGB 28.1 pg (27.0-31.0); MEAN CORPUSCULAR HGB CONC 32.7 g/dl (33.0-37.0); MONO # 0.5 10*3/uL (0.1-1.0); MONO % 6.7 % (3.0-9.0); NEUT # 5.6 10*3/uL (2.3-7.9); NEUT % 70.2 % (47.0-73.0); PLATELET COUNT AUTOMATED 184 10*3/uL (130-400); RED BLOOD COUNT 5.08 10*6/uL (4.10-5.10); RED CELL DISTRI WIDTH 13.4 % (0-14.5); WHITE BLOOD COUNT 7.9 10*3/uL (4.8-10.8)
[2023-06-23 19:51] LABS: BILIRUBIN Negative (Negative); BLOOD Negative (Negative); CLARITY Clear (Clear); COLOR Yellow (Yellow); GLUCOSE Negative (Negative); KETONE Trace (Negative); LEUKO ESTERASE 1+ (Negative); NITRITE Positive (Negative); PH 5.5 (4.5-8.0); UROBILINOGEN 0.2 E.U./dl (0.0-1.0)
[2023-06-23 20:05] LABS: ALKALINE PHOSPHATASE 71 U/L (46-116); BUN 15 mg/dl (9-23); CHLORIDE 101 mmol/L (98-107); POTASSIUM 4.4 mmol/L (3.4-5.1); SGPT/ALT 7 U/L (5-49); TOTAL PROTEIN 6.7 gm/dL (6.0-8.0)
[2023-06-23 20:06] LABS: BACTERIA 2+; RBC 0-2 rbc/hpf (0-2)
[2023-06-23] MEDS ORDERED: Ceftriaxone Sodium 1 GM/10 ML SYR IV ONE (20:25)
[2023-06-23] MEDS ORDERED: [UNRECOGNIZED DRUG - OTHER] PO (21:09)
[2023-06-23] MEDS ORDERED: PROTRIPTYLINE PO (21:10)
[2023-06-23] MEDS ORDERED: Nicotine 21 MG PATCH T ONE (21:45)
[2023-06-23 22:00] VITALS: BP 110/65
[2023-06-23] MEDS ORDERED: Magnesium Hydroxide 30 ML UDC PO PRN (22:00)
[2023-06-23] MEDS ORDERED: BISACODYL 10 MG SUPP R PRN (22:00)
[2023-06-23] MEDS ORDERED: BISACODYL 5 MG TAB PO PRN (22:00)
[2023-06-23] MEDS ORDERED: ACETAMINOPHEN 325 MG TAB PO PRN (22:00)
[2023-06-23] MEDS ORDERED: Ondansetron Hydrochloride 4 MG/2 ML VIAL IV PRN (22:00)
[2023-06-23] MEDS ORDERED: TEMAZEPAM 15 MG CAP PO PRN (22:00)
[2023-06-24 00:30] VITALS: BP 102/56
[2023-06-24] MEDS ORDERED: SODIUM CHLORIDE 0.9% 1,000 ML IV ONE (01:25)
[2023-06-24 05:36] LABS: ALKALINE PHOSPHATASE 65 U/L (46-116); BUN 10 mg/dl (9-23); CHLORIDE 105 mmol/L (98-107); POTASSIUM 3.6 mmol/L (3.4-5.1)
[2023-06-24 05:37] LABS: SGPT/ALT < 7 U/L (5-49)
[2023-06-24 06:01] LABS: BASO % 0.4 % (0.0-1.0); EOS # 0.2 10*3/uL (0.0-0.4); EOS % 2.2 % (1.0-4.0); HEMATOCRIT 42.5 % (37.0-47.0); LYMPH # 2.5 10*3/uL (1.3-4.4); LYMPH % 32.6 % (27.0-41.0); MEAN CELL VOLUME 87.1 fl (81.0-99.0); MEAN CORPUSCULAR HGB 28.1 pg (27.0-31.0); MEAN CORPUSCULAR HGB CONC 32.2 g/dl (33.0-37.0); MEAN PLATELET VOLUME 12.6 fl (9.6-12.3); MONO # 0.6 10*3/uL (0.1-1.0); MONO % 8.3 % (3.0-9.0); NEUT # 4.3 10*3/uL (2.3-7.9); NEUT % 56.2 % (47.0-73.0); PLATELET COUNT AUTOMATED 181 10*3/uL (130-400); RED BLOOD COUNT 4.88 10*6/uL (4.10-5.10); RED CELL DISTRI WIDTH 13.6 % (0-14.5); WHITE BLOOD COUNT 7.7 10*3/uL (4.8-10.8)
[2023-06-24 08:00] VITALS: BP 124/58
[2023-06-24] MEDS ORDERED: ASPIRIN, CHEWABLE 81 MG TAB PO SCH (09:00)
[2023-06-24] MEDS ORDERED: Thiamine 100 MG TAB PO SCH (10:00)
[2023-06-24] MEDS ORDERED: FOLIC ACID 1 MG TAB PO SCH (10:00)
[2023-06-24] MEDS ORDERED: IPRATROPIUM BROMIDE 0.5 MG/2.5 ML AMP NEB SCH (10:00)
[2023-06-24] MEDS ORDERED: Cholecalciferol 2,000 UNIT TABLET (50 MCG) PO SCH (10:00)
[2023-06-24] MEDS ORDERED: TIOTROPIUM BROMIDE 18 MCG CAPSULES INHALER INH SCH (10:00)
[2023-06-24] MEDS ORDERED: Enoxaparin Sodium 40 MG/0.4 ML SYR SC SCH (10:00)
[2023-06-24 12:00] VITALS: BP 137/65
[2023-06-24] MEDS ORDERED: Nicotine 21 MG PATCH T SCH (15:10)
[2023-06-24 16:00] VITALS: BP 128/77
[2023-06-24] MEDS ORDERED: ATORVASTATIN CALCIUM 10 MG TAB PO SCH (18:00)
[2023-06-24 20:00] VITALS: BP 147/70
[2023-06-24] MEDS ORDERED: Ceftriaxone Sodium 1 GM in SYRINGE INFUSION 10 ML IV SCH (20:30)
[2023-06-25 06:57] LABS: BASO % 0.4 % (0.0-1.0); EOS # 0.2 10*3/uL (0.0-0.4); EOS % 2.3 % (1.0-4.0); HEMATOCRIT 43.1 % (37.0-47.0); LYMPH # 2.1 10*3/uL (1.3-4.4); LYMPH % 25.2 % (27.0-41.0); MEAN CELL VOLUME 88.3 fl (81.0-99.0); MEAN CORPUSCULAR HGB 28.3 pg (27.0-31.0); MEAN PLATELET VOLUME 12.9 fl (9.6-12.3); MONO # 0.7 10*3/uL (0.1-1.0); MONO % 8.5 % (3.0-9.0); NEUT # 5.3 10*3/uL (2.3-7.9); NEUT % 63.4 % (47.0-73.0); PLATELET COUNT AUTOMATED 164 10*3/uL (130-400); RED BLOOD COUNT 4.88 10*6/uL (4.10-5.10); RED CELL DISTRI WIDTH 13.9 % (0-14.5); WHITE BLOOD COUNT 8.3 10*3/uL (4.8-10.8)
[2023-06-25 07:18] LABS: BUN 12 mg/dl (9-23); CHLORIDE 106 mmol/L (98-107); POTASSIUM 3.7 mmol/L (3.4-5.1)
[2023-06-25 08:00] VITALS: BP 124/68
[2023-06-25 12:00] VITALS: BP 145/85
[2023-06-25 16:00] VITALS: BP 138/75
[2023-06-25 20:00] VITALS: BP 100/56
[2023-06-26] VITALS: BP 115/53
[2023-06-26 08:00] VITALS: BP 136/67
[2023-06-26 12:00] VITALS: BP 130/54
[2023-06-26 16:00] VITALS: BP 116/54
[2023-06-26 20:00] VITALS: BP 130/57
[2023-06-27] VITALS: BP 127/63
[2023-06-27] MEDS ORDERED: FOAM BANDAGE 5X5 T ONE ×2 (00:47→13:53)
[2023-06-27] MEDS ORDERED: LEPTOSPERMUM HONEY 4 X 5 INCH WOUND DRESSING T ONE (00:47)
[2023-06-27 08:00] VITALS: BP 115/56
[2023-06-27] MEDS ORDERED: OMNICEF300 MG PO (11:09)
[2023-06-27 12:00] VITALS: BP 127/70
== END 2023-06-27 14:51 | DRG 71 ==
LOC: ED 19:14 → EDHOLD 20:56 → 4E 20:56
PROVIDERS: Emergency Medicine; Student in an Organized Health Care Education/Training Program; ADMIT Internal Medicine; ATTEND Internal Medicine
PROC: 0HBRXZZ Excision of Toe Nail, External Approach (ICD-10-PCS; principal; 2023-06-24)
PROC: 0HBRXZZ Excision of Toe Nail, External Approach (ICD-10-PCS; 2023-06-24)
PROC: 0HBRXZZ Excision of Toe Nail, External Approach (ICD-10-PCS; 2023-06-24)
PROC: 0HBRXZZ Excision of Toe Nail, External Approach (ICD-10-PCS; 2023-06-24)
PROC: 0HBRXZZ Excision of Toe Nail, External Approach (ICD-10-PCS; 2023-06-24)
PROC: 0HBRXZZ Excision of Toe Nail, External Approach (ICD-10-PCS; 2023-06-24)
PROC: 0HBRXZZ Excision of Toe Nail, External Approach (ICD-10-PCS; 2023-06-24)
PROC: 0HBRXZZ Excision of Toe Nail, External Approach (ICD-10-PCS; 2023-06-24)
PROC: 0HBRXZZ Excision of Toe Nail, External Approach (ICD-10-PCS; 2023-06-24)
PROC: 0HBRXZZ Excision of Toe Nail, External Approach (ICD-10-PCS; 2023-06-24)
DX: G93.41 Metabolic encephalopathy (principal); E44.0 Moderate protein-calorie malnutrition; N30.00 Acute cystitis without hematuria; F01.518 Vascular dementia, unspecified severity, with other behavioral disturbance; Z68.1 Body mass index [BMI] 19.9 or less, adult; Z66 Do not resuscitate; Z51.5 Encounter for palliative care; J44.9 Chronic obstructive pulmonary disease, unspecified; F41.9 Anxiety disorder, unspecified; M81.0 Age-related osteoporosis without current pathological fracture; R26.2 Difficulty in walking, not elsewhere classified; M13.0 Polyarthritis, unspecified; I10 Essential (primary) hypertension; K70.30 Alcoholic cirrhosis of liver without ascites; F17.210 Nicotine dependence, cigarettes, uncomplicated; B96.20 Unspecified Escherichia coli [E. coli] as the cause of diseases classified elsewhere; B35.1 Tinea unguium; Z90.49 Acquired absence of other specified parts of digestive tract; Z71.6 Tobacco abuse counseling; Z88.5 Allergy status to narcotic agent; Z79.82 Long term (current) use of aspirin; Z79.899 Other long term (current) drug therapy; Z79.1 Long term (current) use of non-steroidal anti-inflammatories (NSAID)